=== PATIENT | male | born 2000 | race Two or more races ===

== ENCOUNTER 2023-05-08 01:21 | Emergency (ER) | payer OTHER ==
[~2023-05-08] VITALS: Ht 167.6 cm; Wt 55.8 kg
[2023-05-08 04:13] LABS: HEMATOCRIT 45.3 % (39.0-48.0); HEMOGLOBIN 15.6 g/dL (13-16.00); MEAN CELL VOLUME 87.7 fL (80.0-100.00); MEAN CORPUSCULAR HEMOGLOBIN 30.3 pg (27.00-32.0); MEAN CORPUSCULAR HGB CONC 34.5 g/dl (32.0-36.0); PLATELET COUNT 237 K/uL (150-450); RED BLOOD COUNT 5.16 M/uL (4.00-6.00); RED CELL DISTRIBUTION WIDTH 13.4 % (11.5-14.5)
[2023-05-08] MEDS ORDERED: ZITHROMAX500 MG PO (05:26)
[2023-05-08] MEDS ORDERED: PHENAGIL TABLE1 EACH PO (05:26)
[2023-05-08] MEDS ORDERED: ZYNCOF 20-400120 ML PO (05:26)
== END 2023-05-08 05:47 ==
LOC: ER 01:21
PROVIDERS: General Practice
DX: R53.81 Other malaise (principal); J06.9 Acute upper respiratory infection, unspecified; Z20.822 Contact with and (suspected) exposure to COVID-19; Z88.6 Allergy status to analgesic agent; Z91.041 Radiographic dye allergy status